=== PATIENT | male | born 1960 | race Hispanic/Latino ===

== ENCOUNTER 2018-11-02 08:25 | Outpatient (CLI) | payer OTHER ==
[2018-11-02] MEDS ORDERED: LASIX IV ONE (08:57)
[2018-11-02] MEDS ORDERED: LASIX ONE (08:57)
[2018-11-02 09:31] VITALS: BP 148/92
--- NOTE | 2018-11-02 10:54 | Nuclear Medicine Report ---
NUCLEAR MEDICINE RENAL SCAN CAPTOPRIL/LASIX HISTORY: Calculus of kidney COMPARISON: None at this facility TECHNIQUE: Following IV administration of Tc-99m-MAG3, sequential dynamic images of the kidneys were obtained in the posterior projection for 30 minutes. Following IV administration of Lasix, additiona l images were acquired for 20 minutes. Time activity whole kidney curves were analyzed. RADIOPHARMACEUTICAL: 5 mCi of Tc-99m-MAG3 MEDICATION: Lasix 20 mg iv at 24 minutes. FINDINGS: The posterior flow images demonstrate symmetric and homogeneous flow to both kidneys. The right kidne y is similar in size as the left kidney. The posterior function images demonstrate normal uptake and excretion of the contrast agent in the ri ght kidney. Within the left kidney, there is normal uptake of the radiotracer but moderate retention of the radiotracer in the left kidney is demonstrated. DIFFERENTIAL FUNCTION: Right: 57% Left: 43% RIGHT: Hycg-cg-iufi activity: 3 minutes, normal T1/2: 40.7 minutes, normal Ureter: No significantly abnormal activity. Normal caliber. Post-Lasix imaging: No significant abnormality in urinary excretion. LEFT: Pmzs-vi-ohpi activity: 18 minutes, delayed T1/2: 41.9 minutes, normal Ureter: No significantly abnormal activity. Normal caliber. Post-Lasix imaging: There is good response to IV Lasix. Additional Findings: None. IMPRESSION: There is symmetric perfusion to both kidneys. There is normal uptake and excretion of the radiotracer on the right side. There is normal uptake of the radiotracer on the left side although there is moderate retained activi ty in the right kidney or right renal pelvis which does respond to IV Lasix suggesting no mechanical obstruction. Signer Name: Guilherme Hart Jr, MD Signed: 11/02/2018 10:49 AM Workstation Name: [id number]
== END 2018-11-02 08:26 | disposition home or self-care (01) ==
LOC: NM 08:25
PROVIDERS: ATTEND Urology
DX: N20.0 Calculus of kidney (principal)
CPT/HCPCS: 78708; A9562; J1940

== ENCOUNTER 2021-06-25 09:36 | Outpatient (CLI) | payer BC ==
[2021-06-25] MEDS ORDERED: FUROSEMIDE 20 MG/2 ML INJ ONE (10:37)
[2021-06-25] MEDS ORDERED: SINCALIDE 5 MCG VIAL IV ONE (10:40)
[2021-06-25] MEDS ORDERED: FUROSEMIDE 20 MG/2 ML INJ IV SCH (11:00)
--- NOTE | 2021-06-25 14:42 | Nuclear Medicine Report ---
NUCLEAR MEDICINE RENOGRAM INDICATION / CLINICAL INFORMATION: N13.39 HYDRONEPHROSIS. Left hydronephrosis follow-up. Nephrolithiasis. TECHNIQUE: Following IV administration of 5.0 mCi Tc-99m-MAG3, sequential dynamic images of the kidneys were obt ained in the posterior projection. Following IV administration of Lasix, additional images were acqui red. 20 mg of Lasix was injected IV and 25 minutes Time activity whole kidney curves were analyzed. COMPARISON: 11/02/2018 FINDINGS: RENAL CORTICAL ACTIVITY: Homogeneous RENAL SIZE: Both kidneys similar size. DIFFERENTIAL FUNCTION: Right: 51% Left: 49% Right ERPF (ml/min) = 49 Left ERPF (ml/min) = 47 TOTAL ERPF (ml/min) = 95.7 RIGHT: Igsb-rd-icam activity: 5 minutes, normal T1/2: 2 minutes, normal Ureter: No significantly abnormal activity. Normal caliber. Post-Lasix imaging: No significant abnormality in urinary excretion. LEFT: Yctw-ie-rlke activity: 15 minutes, prolonged T1/2: 5 minutes, normal Ureter: Persistent activity identified within the left renal collecting system/left renal pelvis. The ureter does not appear to demonstrate significant retention of radiotracer Post-Lasix imaging: Persistent uptake within the left renal collecting system and proximal left urete r. Additional Findings: None. IMPRESSION: Moderately developed obstruction of the proximal left ureter/left renal pelvis, similar to 11/02/2018. Signer Name: Phill Pradhan MD Signed: 06/25/2021 2:37 PM Workstation Name: [id number]
== END 2021-06-25 09:37 | disposition home or self-care (01) ==
LOC: NM 09:36
PROVIDERS: ATTEND Urology
DX: N13.1 Hydronephrosis with ureteral stricture, not elsewhere classified (principal)
CPT/HCPCS: 78708; A9562; J1940